=== PATIENT | female | born 1995 | race Caucasian/White ===

== ENCOUNTER 2017-08-26 03:05 | Emergency (ER) | payer SELFPAY ==
[~2017-08-26] VITALS: Ht 172.7 cm; Wt 109.4 kg
[2017-08-26 03:07] VITALS: BP 122/67
[2017-08-26] MEDS ORDERED: PREN1CTB21 PO (03:11)
--- NOTE | 2017-08-26 04:47 | NUR ---
PATIENT PRESENTS TO ED WITH C/O RIGHT ARM PAIN SINCE 1899 YESTERDAY.PT DENIES ANY TRAUMA, FALL, OR INJURY . PT DENIES N/V/D; SKIN IS PINK/WARM/DRY; AAOX4 WITH EVEN AND STEADY GAIT; LUNGS CLEAR BL; HR EVEN AND REGULAR; PT DENIES ANY FEVER, CP, SOB, OR COUGH AT THIS TIME; PATIENT STATES PAIN OF 7/10 AT THIS TIME; VSS; PATIENT POSITIONED FOR COMFORT; HOB ELEVATED; BEDRAILS UP X2; BED DOWN. ER MD MADE AWARE OF PT STATUS.
--- NOTE | 2017-08-26 05:20 | NUR ---
Patient being evaluated by physician at bedside.
[2017-08-26 06:00] VITALS: BP 139/71
--- NOTE | 2017-08-26 06:00 | NUR ---
Patient discharged with v/s stable. Written and verbal after care instructions given and explained. Patient verbalized understanding. Ambulatory with steady gait. All questions addressed prior to discharge. Advised to follow up with PMD.
== END 2017-08-26 06:00 | disposition home or self-care (01) ==
LOC: MED 03:05
DX: O26.892 Other specified pregnancy related conditions, second trimester (principal); M54.12 Radiculopathy, cervical region; Z79.899 Other long term (current) drug therapy
CPT/HCPCS: 99283

== ENCOUNTER 2017-12-20 00:27 | Inpatient (IN) | payer MEDICAID, OTHER ==
[~2017-12-20] VITALS: Ht 160 cm; Wt 110.0 kg
[~2017-12-20 00:27] MED LIST: PREN1CTB21 PO
[2017-12-20 00:45] VITALS: BP 92/73
--- NOTE | 2017-12-20 00:46 | NUR ---
PATIENT TO ER BED 10.
[2017-12-20] MEDS ORDERED: NACL 0.9% 1,000 ML IV ONE (00:50)
[2017-12-20] MEDS ORDERED: NACL 0.9% 1,000 ML IV SCH (00:58)
--- NOTE | 2017-12-20 01:00 | NUR ---
PATIENT PRESENTS TO ED WITH c/o cp/dizziness/headache. pt gave via vaginal delivery on friday12/15/17. pt states she lost alot of blood during delivery but no transfusion was needed. pt had gestational diabetes PT DENIES N/V/D; AAOX4, LUNGS CLEAR BL; HR EVEN AND REGULAR; PT DENIES ANY FEVER, SOB, OR COUGH AT THIS TIME; PATIENT STATES PAIN OF 3/10 AT THIS TIME; PATIENT POSITIONED FOR COMFORT; HOB ELEVATED; BEDRAILS UP X2; BED DOWN. ER MD MADE AWARE OF PT STATUS.
--- NOTE | 2017-12-20 01:10 | NUR ---
PT TO CT VIA TERE WITH RN/EMT. PT IN STABLE CONDITION WITH SVT OF 208
[2017-12-20 01:17] LABS: BASOPHILS # (AUTO) 0.1 K/uL (0.00-0.22); BASOPHILS % (AUTO) 0.3 % (0.0-2.0); EOSINOPHILS # (AUTO) 0.4 K/uL (0-0.4); HEMATOCRIT 32.5 % (36-48); HEMOGLOBIN 10.4 g/dL (12.0-16.0); LYMPHOCYTES # (AUTO) 6.5 K/uL (2.5-16.5); LYMPHOCYTES % (AUTO) 35.8 % (20.5-51.1); MEAN CORPUSCULAR HEMOGLOBIN 28 pg (27-31); MEAN CORPUSCULAR HGB CONC 32 g/dL (33-37); MEAN CORPUSCULAR VOLUME 87.9 fL (80-94); MONOCYTES # (AUTO) 0.7 K/uL (0.8-1.0); NEUTROPHILS # (AUTO) 10.5 K/uL (1.8-7.7); PLATELET COUNT (AUTO) 311 K/uL (140-450); RED CELL DISTRIBUTION WIDTH 14.2 % (11.6-13.7); WHITE BLOOD COUNT (AUTO) 18.1 K/uL (4.8-10.8)
[2017-12-20 01:33] LABS: ANION GAP 18.6 (8-16); CARBON DIOXIDE 23.9 mmol/L (21-32); CREATININE 0.9 mg/dL (0.6-1.3); POTASSIUM 3.5 mmol/L (3.5-5.1); PROTHROMBIN TIME 9.6 secs (10.8-13.4)
[2017-12-20 01:40] LABS: NEUTROPHILS % (AUTO) 57.9 % (42.2-75.2)
[2017-12-20 01:41] LABS: TOTAL BILIRUBIN 0.2 mg/dL (0.0-1.0)
[2017-12-20] MEDS ORDERED: MORPHINE SULFATE 4 MG/ML SYR IVP ONE (01:45)
[2017-12-20] MEDS ORDERED: MORPHINE SULFATE 4 MG/ML SYR ONE (01:46)
--- NOTE | 2017-12-20 01:50 | NUR ---
PT RETURNED WITH RN FROM CT VIA [facility] IN STABLE CONDTION WITH HR 198 AND STATES PRESSURE STILL FELT ON CHEST. MADE AWARE.
[2017-12-20] MEDS ORDERED: ADENOSINE 6 MG/2 ML VIAL IVP ONE ×2 (02:05→02:15)
--- NOTE | 2017-12-20 02:05 | NUR ---
PAIN MEDS GIVEN WITH GOOD EFFECT. PT STATES RELIEF OF PRESSURE ON CHEST. PT HR 197. MADE AWARE.
--- NOTE | 2017-12-20 02:11 | NUR ---
ADENOSINE 6 MG GIVEN VIA IVP. PT TOLERATED WELL.
[2017-12-20 02:12] LABS: BILIRUBIN,URINE NEGATIVE (NEGATIVE); BLOOD, URINE 3+ (NEGATIVE); COLOR,URINE YELLOW (YELLOW); LEUKOCYTE ESTERASE ,URINE NEGATIVE (NEGATIVE); NITRITE, URINE NEGATIVE (NEGATIVE); PH,URINE 6.5 (5.0-9.0); UGLUCOSE NEGATIVE (NEGATIVE)
--- NOTE | 2017-12-20 02:13 | NUR ---
PT HAD GOOD EFFECT WITH ADENOSINE GIVEN. HR 123. PT STATES NO PAIN AT THIS TIME.
[2017-12-20 02:15] LABS: APPEARANCE,URINE SLIGHTLY HAZY (CLEAR)
[2017-12-20 02:20] LABS: RBC,URINE >100 /HPF (0-5)
--- NOTE | 2017-12-20 02:38 | NUR ---
Patient appears to be resting comfortably in bed. Vital Signs within normal limits. Respirations even and unlabored.
--- NOTE | 2017-12-20 03:44 | NUR ---
PT RESTING COMFORTABLY. HR 101, FAMILY AT BEDSIDE. NO ACUTE DISTRESS NOTED.
[2017-12-20] MEDS ORDERED: LORazepam 2 MG/ML VIAL IVP PRN (03:55)
[2017-12-20] MEDS ORDERED: HYDROcodone/APAP 5/325 MG 1 TAB TAB PO PRN (03:55)
[2017-12-20] MEDS ORDERED: ONDANSETRON 4 MG/2 ML VIAL IVP PRN (03:55)
[2017-12-20] MEDS ORDERED: ACETAMINOPHEN 325 MG TAB PO PRN (03:55)
[2017-12-20] MEDS ORDERED: MORPHINE SULFATE 4 MG/ML SYR IVP PRN (03:55)
--- NOTE | 2017-12-20 04:10 | NUR ---
PT ARRIVED AT UNIT VIA GURNEY, PT STABLE, NO DISTRESS NOTED, PT AMBULATED TO BED, TOLERATED WELL, REPORT RECEIVED FROM ED NURSE, IV TO R AC 18 G SL, AND L AC 18G SL, BOTH PATENT AND INTACT, PT ON ROOM AIR NO SOB, ORIENT PT TO ROOM, CALL LIGHT, TELEPHONE, MRSA SWAB TAKEN, INITIAL ASSESSMENT DONE, ALL SAFETY PRECAUTION MET, FAMILY BY BEDSIDE, WILL CONTINUE TO MONITOR.
--- NOTE | 2017-12-20 04:15 | NUR ---
Patient will be admitted to care of DR LAUREANO. Admited to TELE. Will go to room 118. Belongings list completed. Report to BRANDON MILTON.
[2017-12-20 04:20] VITALS: BP 119/69
[2017-12-20] MEDS ORDERED: cefTRIAXone 1,000 MG VIAL ONE (04:39)
--- NOTE | 2017-12-20 04:52 | NUR ---
RADIOLOGY CALLED NOTIFYING THAT PT WILL BE PICKED UP FOR CT AROUND 6AM
[2017-12-20] MEDS: NACL 0.9% 1,000 ML IV SCH ×3 (04:54→13:00)
--- NOTE | 2017-12-20 04:54 | NUR ---
DUE MEDICATION GIVEN, PT TOLERATED WELL, NO DISTRESS NOTED, CALL LIGHT WITHIN REACH, WILL CONTINUE OT MONITOR.
--- NOTE | 2017-12-20 05:28 | NUR ---
ASSESSED PATIENT FOR OXYGEN. PATIENT ON ROOM AIR, AWAKE AND ALERT. SPO2 98%, HEART RATE 61 AND RESPIRATORY RATE 16. B/S: CLEAR AND DIMINISHED BILATERALLY. PATIENT DOES NOT APPEAR TO BE IN ANY RESPIRATORY DISTRESS OR IN NEED OF OXYGEN.
--- NOTE | 2017-12-20 06:54 | NUR ---
PATIENT HAS BEEN SCREENED AND CATEGORIZED HIGH NUTRITION RISK. PATIENT WILL BE SEEN WITHIN 1-2 DAYS OF ADMISSION. 12/21/17-12/22/17 CARLOZ REYES MS, RDN
--- NOTE | 2017-12-20 07:23 | NUR ---
ENDORSED PLAN OF CARE TO DAY SHIFT NURSE SREEKANTH RN, PT STABLE, NO DISTRESS NOTED, CALL LIGHT WITHIN REACH.
--- NOTE | 2017-12-20 07:27 | NUR ---
RECEIVED REPORT FROM AM NURSE. PT AWAKE AND ALERT. PT IS IN STABLE CONDITION. BED IN LOW POSITION AND CALL FUENTES WITHIN REACH. WILL CONTINUE TO MONITOR.
--- NOTE | 2017-12-20 08:26 | NUR ---
LOVENOX GIVEN SCHEDULED. PT TOLERATED WELL. PT SITTING UP TALKING. NO ACUTE DISTRESS. MOTHER AT BEDSIDE. PT REMAINS ON OIL LEASE BROKER. WILL CONTINUE TO MONITOR.
[2017-12-20] MEDS ORDERED: ENOXAPARIN 40 MG/0.4 ML SYR SUBQ SCH (09:00)
[2017-12-20 09:27] VITALS: BP 104/71
--- NOTE | 2017-12-20 11:30 | NUR ---
PT REQUESTING BREAST PUMP. BREAST PUMP RECEIVED. PT IN STABLE CONDITION. AND MOTHER AT BEDSIDE. BED LOCKED AND IN LOW POSITION. CALL FUENTES WITHIN REACH. WILL CONTINUE TO MONITOR.
[2017-12-20 12:30] VITALS: BP 113/65
[2017-12-20] MEDS ORDERED: DILTIAZEM 25 MG/5 ML VIAL IVP PRN (15:30)
[2017-12-20 16:00] VITALS: BP 98/52
[2017-12-20 16:13] LABS: BARBITURATE, URINE NEG. ng/ml (NEG <=200); BENZODIAZEPINE, URINE NEG. ng/mL (NEG <=200); CANNABINOID, URINE NEG. ng/mL (NEG <=50); COCAINE, URINE NEG. ng/mL (NEG <=300); OPIATE, URINE NEG. ng/mL (NEG <=2000); PHENCYCLIDINE SCREEN,URINE NEG. ng/mL (NEG <=25)
[2017-12-20 16:24] LABS: FREE T4 (FREE THYROXINE) 0.96 ng/dL (0.76-1.46); THYROID STIMULATING HORMONE 2.72 uIU/mL (0.34-3.74)
--- NOTE | 2017-12-20 17:05 | NUR ---
DR Jeremy LAUREANO TO BEDSIDE.
--- NOTE | 2017-12-20 18:02 | NUR ---
DR Jeremy WICK TO BEDSIDE FOR EVAL.
--- NOTE | 2017-12-20 18:20 | NUR ---
DR DIVINA BIANCHI DIRECTOR OF MARKETING COMMUNICATIONS FOR DR LAUREANO PAGEPatel AND CALLED BACK, REPORTED THAT PT WAS CLEARED FOR DC BY FIELD CHECKER DR Jeremy WICK, OK TO DISCHARGE PATIENT PER DR BIANCHI.
--- NOTE | 2017-12-20 19:24 | NUR ---
DC INSTRUCTION GIVEN AND EXPLAINED TO PT AND FAMILY, PT AWAKE ALERT RESP EVEN UNLABORED, SKIN WARM DRY COLOR WNL, DENIES CHEST PAIN OR SOB, PT UP OUT OF BED WITHOUT PROBLEM, AMBULATES WITH STEADY GAIT, IVs DC'D, CATH TIPS INTACT, BLEEDING CONTROLLED, DC HOME NOW WITH FAMILY.
--- NOTE | 2017-12-22 17:10 | NUR ---
RETRO REVIEW ER REPORT, H&P AND CONSULT FAXED TO [facility] [phone] PHONE IAN [phone]
== END 2017-12-20 19:25 | disposition home or self-care (01) | DRG 561 ==
LOC: MED 00:27 → MTU 03:53
PROVIDERS: ADMIT Hospitalist; ATTEND Hospitalist
DX: O99.43 Diseases of the circulatory system complicating the puerperium (principal); I95.9 Hypotension, unspecified; I47.1 Supraventricular tachycardia; E11.9 Type 2 diabetes mellitus without complications; O24.33 Unspecified pre-existing diabetes mellitus in the puerperium; Z79.899 Other long term (current) drug therapy
CPT/HCPCS: 36415; 71045; 71275; 80053; 80305; 81001; 82550; 82948; 83605; 83880; 84439; 84443; 84484; 85025; 85379; 85610; 85730; 86886; 86900; 86901; 87040; 87081; 87086; 93005; 96361; 96374; 99285; J0153; J0696; J1650; J2270; J7030; J7060; Q9967